=== PATIENT | female | born 1940 | race Caucasian/White ===

== ENCOUNTER 2017-01-04 16:03 | Emergency (ER) | payer MEDICARE, OTHER ==
[~2017-01-04] VITALS: Ht 152.4 cm; Wt 98.0 kg
[2017-01-04] MEDS ORDERED: HYDROmorphone 1 MG/ML, 1ML IM ONE (16:30)
[2017-01-04] MEDS ORDERED: HYDROmorphone 1 MG/ML, 1ML ONE (16:44)
[2017-01-04] MEDS ORDERED: HYDROcodone/APAP 5/325 TABLET PO ONE (17:30)
[2017-01-04] MEDS ORDERED: HYDROcodone/APAP 5/325 TABLET ONE (17:33)
[2017-01-04 19:19] VITALS: BP 100/64
== END 2017-01-04 19:21 | disposition home or self-care (01) ==
LOC: ED 19:15
DX: S43.421A Sprain of right rotator cuff capsule, initial encounter (principal); W01.0XXA Fall on same level from slipping, tripping and stumbling without subsequent striking against object, initial encounter; Y93.01 Activity, walking, marching and hiking; Y92.59 Other trade areas as the place of occurrence of the external cause; Y99.8 Other external cause status
CPT/HCPCS: 70450; 72125; 99284

== ENCOUNTER 2018-05-04 16:20 | Inpatient (IN) | payer MEDICARE, OTHER ==
[~2018-05-04] VITALS: Ht 149.9 cm; Wt 100.3 kg
[2018-05-04] MEDS ORDERED: ASPIRIN 81 MG TABLET CHEW PO ONE (16:30)
[2018-05-04] MEDS ORDERED: SODIUM CHLORIDE FLUSH 10ML SYR IVF ONE (16:30)
[2018-05-04 17:37] LABS: BASOPHILS # (AUTO) 0.03 x10^3/uL (0-0.1); BASOPHILS % (AUTO) 1 % (0-1); EOSINOPHILS # (AUTO) 0.12 x10^3/uL (0-0.4); EOSINOPHILS % (AUTO) 3 % (1-7); LYMPHOCYTES # (AUTO) 0.84 x10^3/uL (1-3.4); LYMPHOCYTES % (AUTO) 18 % (22-44); MD NO; MEAN CORPUSCULAR HEMOGLOBIN 30.3 pg (27.0-34.8); MEAN CORPUSCULAR HGB CONC 34.5 g/dL (32.4-35.8); MEAN PLATELET VOLUME 8.1 fL (7.4-10.4); MONOCYTES # (AUTO) 0.71 x10^3/uL (0.2-0.8); MONOCYTES % (AUTO) 15 % (2-9); NEUTROPHILS # (AUTO) 3.01 x10^3/uL (1.8-6.8); NEUTROPHILS % (AUTO) 64 % (42-75); PLATELET COUNT 310 x10^3/uL (130-400); RED BLOOD COUNT 5.08 x10^6/uL (3.82-5.3); RED CELL DISTRIBUTION WIDTH 15.9 % (9.6-15.2)
[2018-05-04 17:46] LABS: ALANINE AMINOTRANSFERASE 28 U/L (12-78); ALBUMIN 3.8 g/dL (3.4-5.0); ANION GAP 7 mmol/L (5-15); CALCIUM 9.4 mg/dL (8.5-10.1); CHLORIDE 108 mmol/L (98-107)
[2018-05-04 17:51] LABS: ALKALINE PHOSPHATASE 93 U/L (45-117); BILIRUBIN,TOTAL 1.2 mg/dL (0.2-1.0); CREATININE 0.63 mg/dL (0.55-1.02); TOTAL PROTEIN 7.5 g/dL (6.4-8.2); TROPONIN I < 0.015 ng/mL (0.000-0.045)
--- NOTE | 2018-05-04 17:51 | NUR ---
CARTOONIST SPECIAL EFFECTS: TO ROOM FROM LOBBY, VIA MARGARITA.
--- NOTE | 2018-05-04 19:07 | NUR ---
REPORT RECEIVED FROM KHUSHBU BEAUCHAMP. ASSUMED CARE OF PT AT THIS TIME. PT CURRENTLY RESTING ON GURNEY. NAD NOTED. SKIN PWD. RESP EVEN AND EQAUL. CALL LIGHT WITHIN REACH. WILL CONT TO MONITOR PT. PT DECIDED SHE WOULD LIKE TO BE ADMITTED. SON AT BEDSIDE.
[2018-05-04] MEDS ORDERED: ASPIRIN 81 MG TABLET CHEW ONE (19:12)
--- NOTE | 2018-05-04 19:49 | NUR ---
REPORT TO KHUSHBU GILLESPIE ON TELE.
[2018-05-04] MEDS ORDERED: ENOXAPARIN 40 MG/0.4 ML SQ SCH (21:00)
[2018-05-04] MEDS ORDERED: BISACODYL 10 MG SUPP PR PRN (21:00)
[2018-05-04] MEDS ORDERED: ONDANSETRON 2MG/ML, 2ML IVPush PRN (21:00)
[2018-05-04] MEDS ORDERED: OXYcodone IR 5MG TABLET PO PRN (21:00)
[2018-05-04] MEDS ORDERED: PROMETHAZINE 25 MG/ML, 1ML IM PRN (21:00)
[2018-05-04] MEDS ORDERED: morphine SULFATE 10 MG/ML, 1ML IVPush PRN (21:00)
[2018-05-04] MEDS ORDERED: ONDANSETRON ODT 4 MG PO PRN (21:00)
[2018-05-04] MEDS ORDERED: NITROGLYCERIN 0.4 MG BOTTLE (25 TABS) SL PRN (21:00)
[2018-05-04] MEDS ORDERED: POLYETHYLENE GLYCOL 17 GM PACKET PO PRN (21:00)
[2018-05-04] MEDS ORDERED: DOCUSATE 100 MG CAPSULE PO PRN (21:00)
[2018-05-04] MEDS ORDERED: LABETALOL 5MG/ML, 20ML IVPush PRN (21:00)
[2018-05-04] MEDS ORDERED: hydrALAzine 20 MG/ML, 1ML IVPush PRN (21:00)
[2018-05-04 21:17] VITALS: BP 123/67
[2018-05-04 21:28] LABS: FREE T4 (FREE THYROXINE) 1.3 ng/dL (0.76-1.46); THYROID STIMULATING HORMONE 0.042 mIU/L (0.358-3.740)
[2018-05-04 21:59] LABS: HEMOGLOBIN A1C 6.2 % (4.2-6.3)
[2018-05-05 00:17] LABS: TROPONIN I < 0.015 ng/mL (0.000-0.045)
[2018-05-05 01:25] VITALS: BP 139/77
[2018-05-05] MEDS ORDERED: ASPIRIN 325 MG TABLET EC PO SCH (06:00)
[2018-05-05 06:24] LABS: BASOPHILS # (AUTO) 0.03 x10^3/uL (0-0.1); BASOPHILS % (AUTO) 1 % (0-1); EOSINOPHILS # (AUTO) 0.13 x10^3/uL (0-0.4); EOSINOPHILS % (AUTO) 3 % (1-7); LYMPHOCYTES # (AUTO) 0.93 x10^3/uL (1-3.4); LYMPHOCYTES % (AUTO) 22 % (22-44); MD NO; MEAN CORPUSCULAR HEMOGLOBIN 30.5 pg (27.0-34.8); MEAN CORPUSCULAR HGB CONC 34.9 g/dL (32.4-35.8); MEAN CORPUSCULAR VOLUME 87.4 fL (80-100); MEAN PLATELET VOLUME 8.1 fL (7.4-10.4); MONOCYTES # (AUTO) 0.78 x10^3/uL (0.2-0.8); MONOCYTES % (AUTO) 18 % (2-9); NEUTROPHILS # (AUTO) 2.41 x10^3/uL (1.8-6.8); NEUTROPHILS % (AUTO) 57 % (42-75); PLATELET COUNT 268 x10^3/uL (130-400); RED BLOOD COUNT 4.51 x10^6/uL (3.82-5.3); RED CELL DISTRIBUTION WIDTH 15.9 % (9.6-15.2)
[2018-05-05 07:02] LABS: ALBUMIN 3.3 g/dL (3.4-5.0); ANION GAP 7 mmol/L (5-15); CALCIUM 8.9 mg/dL (8.5-10.1); CHLORIDE 111 mmol/L (98-107); CREATININE 0.52 mg/dL (0.55-1.02)
[2018-05-05 07:05] LABS: TROPONIN I < 0.015 ng/mL (0.000-0.045)
[2018-05-05 07:26] LABS: ALANINE AMINOTRANSFERASE 23 U/L (12-78); ALKALINE PHOSPHATASE 76 U/L (45-117); BILIRUBIN,TOTAL 0.9 mg/dL (0.2-1.0); CHOL/HDL RATIO 2.4; CHOLESTEROL, TOTAL 117 mg/dL (140-239); HDL CHOL % 41 % (28-40); HDL CHOLESTEROL (DIRECT) 48 mg/dL (40-60); LDL CHOLESTEROL,CALCULATED 56 mg/dL (54-169); LDL/HDL RATIO 1.2 (0.5-3.0); TOTAL PROTEIN 6.3 g/dL (6.4-8.2); TRIGLYCERIDES 67 mg/dL (50-200); VLDL CHOLESTEROL 13 mg/dL (0-25)
[2018-05-05 08:30] VITALS: BP 121/73
[2018-05-05] MEDS ORDERED: REGADENOSON 0.4 MG/5 ML SYRINGE ONE (09:09)
[2018-05-05] MEDS ORDERED: NATURE THROID PO (13:45)
[2018-05-05 15:20] VITALS: BP 128/75
== END 2018-05-05 18:45 | disposition home or self-care (01) | DRG 303 ==
LOC: ED 18:41 → EDIP 19:17 → 5SO 20:16
PROVIDERS: ADMIT Internal Medicine; ATTEND Internal Medicine
DX: I25.10 Atherosclerotic heart disease of native coronary artery without angina pectoris (principal); R00.2 Palpitations; E03.9 Hypothyroidism, unspecified; J44.9 Chronic obstructive pulmonary disease, unspecified; I11.9 Hypertensive heart disease without heart failure; R16.1 Splenomegaly, not elsewhere classified; Z90.710 Acquired absence of both cervix and uterus
CPT/HCPCS: 36415; 71045; 76700; 78452; 80053; 80061; 83036; 83735; 83880; 84439; 84443; 84484; 85025; 93005; 93017; 99285; C8929; G0378; J1650; J2785; Q9957; A9502; C9898

== ENCOUNTER → 2020-07-24 | Outpatient (CLI) | payer MEDICARE, OTHER ==
[~2020-07-24] MED LIST: ACET325T26 PO; CHOL10003 PO; CIPR500T87 PO; CLOT10TR PO; CLOT15CR6 TP; FURO-93 PO; GABA-827 PO; GINK120T3 PO; MELA5TAB14 PO; NATURE THROID PO; POTA20TA6 PO; SOUR1000 PO; THYR97.5 PO; UBID1CAP43 PO
== END | disposition home or self-care (01) ==
LOC: CVU 14:22
PROVIDERS: ATTEND Physician Assistant Surgical
DX: M25.872 Other specified joint disorders, left ankle and foot (principal); M25.871 Other specified joint disorders, right ankle and foot; R60.0 Localized edema
CPT/HCPCS: 93922

== ENCOUNTER → 2020-10-23 | Outpatient (CLI) | payer MEDICARE, OTHER ==
[~2020-10-23] MED LIST changes: +AMOX1TAB64 PO; +LIDO700A20 TD; +Nature-Throid PO; +PANT40TA6 PO; +REGADENOSON 0.4 MG/5 ML SYRINGE ONE; +SUCR1TAB33 PO; +[UNRECOGNIZED DRUG - OTHER]
== END | disposition home or self-care (01) ==
LOC: RAD 11:08
PROVIDERS: ATTEND Physician Assistant Medical
DX: I48.91 Unspecified atrial fibrillation (principal); R07.9 Chest pain, unspecified
CPT/HCPCS: 78452; 93017; A9502; J2785